=== PATIENT | male | born 1985 | race Caucasian/White ===

== ENCOUNTER 2016-08-15 00:03 | Emergency (ER) | payer BC ==
--- NOTE | ~2016-08-15 | ER ---
PATIENT'S NAME: INES GRANADOS [facility] AGE: 30 [address] ROOM: [place] [address] LOCATION: [facility] ADMIT DATE: 08/15/2016 ER/Outpatient Report DISCHARGE DATE: FAMILY PHYSICIAN: Emerson Higgins MD ATTENDING PHYSICIAN: Elton Rodriguez Admission date and time documented on the medical record. I saw the patient at 0015 hours. CHIEF COMPLAINT: Left finger crush injury with pain. HISTORY OF PRESENT ILLNESS: The patient is a 30-year-old male who on caught his left index fingertip in a door. He suffered a crush injury. He has pain, swelling, stiffness. Presented to the emergency room tonight for evaluation. HOME MEDICATIONS: None. ALLERGIES: PENICILLIN. SOCIAL HISTORY: The patient smokes 2 cigarettes a day. Occasional intake of alcohol. SIGNIFICANT PAST MEDICAL HISTORY: Tobacco abuse, otherwise negative. PAST SURGICAL HISTORY: Herniorrhaphy. REVIEW OF SYSTEMS: All systems reviewed by me are negative with the exception of those discussed in the history of present illness. PHYSICAL EXAMINATION: VITAL SIGNS: Temperature 97.1 tympanic, pulse 70, respirations 16, blood pressure 116/68, O2 saturation on room air is 97%. EXTREMITIES: On examination, the patient has swelling and some duskiness to the distal phalanx, left index finger. No open wounds. No bleeding. Neurovascularly intact. Capillary refill intact. LABORATORY DATA AND X-RAYS: X-ray shows minor tuft fracture, distal phalanx of the left index finger. We PATIENT'S NAME: INES GRANADOS [facility] AGE: 30 Y [address] ROOM: [place] [address] LOCATION: [facility] ADMIT DATE: 08/15/2016 ER/Outpatient Report DISCHARGE DATE: FAMILY PHYSICIAN: Emerson Higgins MD ATTENDING PHYSICIAN: Elton Rodriguez will review x-ray with the radiologist. IMPRESSION: Tuft fracture, distal phalanx, left index finger. PLAN: The patient was dismissed home, observation, activity as tolerated. Ice to sore areas intermittently as needed. Aleve 2 orally 2 times a day with food x7 to 10 days, finger guard, follow up with personal physician as needed. Discussion ensued with the patient concerning my findings and recommendations, he understands. MD SANDEEP FERNANDO/marlene /[id number] d: 08/15/16 0120 t: 08/15/16 1809, OUTPATIENT REPORT
== END 2016-08-15 00:51 | disposition disaster alternative care site (69) ==
LOC: GACC 00:03
PROC: 2W3KX1Z Immobilization of Left Finger using Splint (ICD-10-PCS; principal; 2016-08-15)
DX: S62.631A Displaced fracture of distal phalanx of left index finger, initial encounter for closed fracture (principal); F17.210 Nicotine dependence, cigarettes, uncomplicated; Z88.0 Allergy status to penicillin; Z98.890 Other specified postprocedural states; W23.0XXA Caught, crushed, jammed, or pinched between moving objects, initial encounter